=== PATIENT | female | born 1940 | race Caucasian/White ===

== ENCOUNTER 2018-05-24 22:51 | Emergency (ER) | payer OTHER ==
[2018-05-24 22:58] VITALS: BP 127/81
[2018-05-24] MEDS ORDERED: SKIN ADHESIVE (DERMABOND) 1 EACH TP ONE ×2 (23:07→23:15)
--- NOTE | 2018-05-24 23:13 | EDPHY ---
H & P Stated Complaint: FOREHEAD LACERATION Time Seen by Provider: 05/24/18 23:01 HPI/ROS: Chief Complaint: Forehead laceration HPI: 78-year-old woman sustained a laceration to her left forehead when she struck her head on a metal edge while shopping at [employer]. She did not have a loss of consciousness. She is not on any blood thinning medications. She did have a large hematoma initially but has gone down with ice. Denies any fevers or chills. No headache. No neck pain. No nausea or vomiting. ROS: 10 point Review of Systems is negative except as noted in the HPI. PMH: Denies Social History: [No] smoking, [no] alcohol, [ no recreational drug use] Family History: [non-contributory] Physical Exam: General: Awake, alert, no acute distress HEENT: She has a 5 mm horizontal laceration on her left forehead. There is a moderate 2 x 3 cm hematoma underlying. There is no bony tenderness or step- offs. Pupils equal round reactive light and accommodation. Neck: Nontender, full range of motion without pain Skin: No rash - Personal History Current Tetanus/Diphtheria Vaccine: Unsure Current Tetanus Diphtheria and Acellular Pertussis (TDAP): Unsure - Medical/Surgical History Hx Asthma: No Hx Chronic Respiratory Disease: No Hx Diabetes: No Hx Cardiac Disease: No Hx Renal Disease: No Hx Cirrhosis: No Hx Alcoholism: No Hx HIV/AIDS: No Hx Splenectomy or Spleen Trauma: No Other PMH: ENDOCARDITIS Constitutional: Initial Vital Signs Temperature (C) 36.7 C 05/24/18 22:53 Heart Rate 86 05/24/18 22:53 Respiratory Rate 16 05/24/18 22:53 Blood Pressure 127/81 H 05/24/18 22:53 O2 Sat (%) 97 05/24/18 22:53 O2 Delivery Mode Room Air Allergies/Adverse Reactions: amoxicillin Allergy (Verified 05/24/18 22:58) Sulfa (Sulfonamide Antibiotics) Allergy (Verified 05/24/18 22:58) Home Medications: Medication Instructions Recorded NK [No Known Home Meds] 05/24/18 Medical Decision Making Procedures: Procedure: Laceration repair with skin glue. The 5 mm laceration on the left forehead. The wound was cleaned and explored to its base with a gloved finger. There were no deep structures involved. The wound was repaired with tissue adhesive. The procedure was performed by myself. Departure - Departure Disposition: Home, Routine, Self-Care Clinical Impression: Laceration Condition: Good Instructions: Laceration (ED), Skin Adhesive Care (ED) Additional Instructions: Follow up with primary care physician in 3-4 days for any concerns. Return to the emergency department for increasing headache, confusion, nausea or vomiting, neck pain, numbness, weakness, or any other concerns. Referrals: Deepika Ibrahim MD [Primary Care Provider] - As per Instructions
== END 2018-05-24 23:22 | disposition home or self-care (01) ==
PROC: 0HQ1XZZ Repair Face Skin, External Approach (ICD-10-PCS; principal; 2018-05-24)
DX: S01.81XA Laceration without foreign body of other part of head, initial encounter (principal); W22.09XA Striking against other stationary object, initial encounter; Y92.513 Shop (commercial) as the place of occurrence of the external cause; Y93.89 Activity, other specified